=== PATIENT | male | born 2005 | race Two or more races ===

== ENCOUNTER 2025-02-26 12:30 | Emergency (ER) | payer SELFPAY ==
--- NOTE | 2025-02-26 12:48 | XR_ITS ---
Examination: Wrist, right 3 views Technique: Wrist AP, oblique, lateral 3 views Date and time of exam: February 26, 2025, 1300 hours INDICATIONS: Patient fell today with injury to the wrist, wrist pain. FINDINGS: Acute fractures distal radius distal ulna, severe volar angulation at the fracture sites Overriding of the distal ulnar fracture Carpal bones intact IMPRESSION: Acute fractures distal radius distal ulna, severe volar angulation at the fracture sites
--- NOTE | 2025-02-26 12:48 | XR_ITS ---
Examination: Humerus 2 views right Technique: Humerus, AP lateral 2 views Date and time of exam: February 26, 2025, 1313 hours INDICATION: Patient fell today with injury to the arm, arm pain FINDINGS: No shoulder fracture or dislocation Shaft of the humerus intact IMPRESSION: Negative for fracture
--- NOTE | 2025-02-26 12:48 | XR_ITS ---
Examination: Forearm, right, 2 views. Technique: Forearm, AP, lateral 2 views Date and time of exam: February 26, 2025, 1300 hours INDICATIONS: Patient fell today with injury to the forearm, arm pain. FINDINGS: Acute fractures distal radius distal ulna Mild overriding of the distal ulnar fracture On the lateral view severe palmar angulation of both fractures Elbow bones appear intact IMPRESSION: Acute significantly angulated fractures distal radius distal ulna
--- NOTE | 2025-02-26 12:49 | XR_ITS ---
Examination: CT brain head without contrast. 2-D sagittal coronal reconstructions Date and time of exam: February 26, 2025, 1435 hours INDICATIONS: Patient fell off a ladder today with injury to the head, head pain CTDI: vol (mGy): 51.5 DLP: (mGycm): 1086 Technique: Multiple CT axial sections of the brain have been obtained, 5 mm slice thickness. Contrast has not been administered. 2-D sagittal, coronal reconstructions have been obtained Low dose protocols were performed. One or more of the following dose reduction techniques were used; automated exposure control, adjustment of the mA and/or KV according to patient size, use of iterative reconstruction technique. Findings: No significant ventricular enlargement. Intra-axial or extra-axial hemorrhage density is not seen. No mass effect or midline shift Basal cisterns are not remarkable. Fourth ventricle is midline. Cranial vault intact. Impression: Negative for acute hemorrhage, mass effect or midline shift
--- NOTE | 2025-02-26 12:49 | XR_ITS ---
Examination: CT chest, without intravenous contrast. CT abdomen, without intravenous contrast. CT pelvis, without intravenous contrast. 2-D sagittal and coronal reconstructions. 3-D reconstructions. Date and time of exam: February 26, 2025, 1438 hours INDICATIONS: Patient fell from a ladder today with injury to the chest and abdomen, chest pain abdomen pain CTDI vol (mgy) 10.2 DLP (MGycm) 778 Technique: Multiple CT images, 3.0 mm slice thickness, obtained chest, abdomen, pelvis, with the high-resolution 64 slice scanner.. Sagittal and coronal 2-D reconstructions are obtained. 3-D reconstructions Low dose protocols were performed. One or more of the following dose reduction techniques were used; automated exposure control, adjustment of the mA and/or KV according to patient size, use of iterative reconstruction technique. Findings: Thoracic aorta pulmonary arteries intact No hemopericardium No pneumothorax pulmonary contusion or hemothorax The manubrium and the body of the sternum are intact No thoracic lumbar or sacral fracture noted Ribs appear intact Fatty infiltration throughout the liver No liver splenic or renal laceration, no perinephric hematoma Abdominal aorta intact, no free blood in the abdomen or pelvis Normal appendix Intact urinary bladder Bones of the pelvis hips intact IMPRESSION: Please see the right forearm report Thoracic aorta pulmonary arteries intact No pneumothorax or hemothorax No abdominal parenchymal laceration Abdominal aorta intact No free blood in the abdomen or pelvis
--- NOTE | 2025-02-26 12:49 | XR_ITS ---
Examination: CT cervical spine without contrast 2-D sagittal reconstructions 2-D coronal reconstructions 3-D reconstructions. Exam date and time: February 26, 2025, 1435 hours INDICATION: Patient fell off a ladder today with injury to the neck, neck pain CTDI:vol (mGy) 17.2 DLP: (mGycm) 349 Technique: Multiple 2 mm axial sections of the cervical spine have been obtained. The coronal and sagittal reconstructions have been obtained. 3-D reconstructions have been obtained. Low dose protocols were performed. One or more of the following dose reduction techniques were used; automated exposure control, adjustment of the mA and/or KV according to patient size, use of iterative reconstruction technique. Findings: Axial sections demonstrate intact base of the skull. C1 exhibit satisfactory relationship to the odontoid. No acute cervical vertebral body fracture seen. Alignment posterior spinous processes satisfactory. Impression: No acute cervical fracture.
[2025-02-26 12:50] VITALS: BMI 29.5
--- NOTE | 2025-02-26 12:50 | EDNOTE_ITS ---
ED Fall Injury RME/HPI General Chief Complaint: Fall Stated Complaint: Fell from ladder, 7ft and right shoulder pain Time Seen by Provider: 02/26/25 12:50 Source: patient Arrival date/time: 02/26/25 12:30 Mode of arrival: ambulatory RME / HPI RME / HPI Narrative: See MDM for HPI documentation. Related Data Previous Rx's ?Medication ?Instructions ?Recorded acetaminophen 300 mg-codeine 30 mg 2 tab PO Q8H PRN pa in #20 tabs 02/26/25 tablet ibuprofen 800 mg tablet 800 mg PO Q8H PRN pain #30 t abs 02/26/25 Allergies Allergy/AdvReac Type Severity Reaction Status Date / Time No Known Drug Allergies Allergy Verified 02/26/25 12:35 Review of Systems Review of Systems Systems Reviewed: All systems reviewed, normal except as documented ED Exam Narrative Physical exam: See MDM for physical exam documentation. Course Quality Measures none Orders Category Date Time Status Miscellaneous Nursing Order NOW Care 02/26/25 12:47 Completed Saline [Insert IV] NOW Care 02/26/25 12:45 Completed Splint / Immobilizer STAT Care 02/26/25 14:[address] cervical spine wo con Stat Exams 02/26/25 12:[address] chest abdomen pelvis wo Stat Exams 02/26/25 12:[address] head/brain wo con Stat Exams 02/26/25 12:49 Completed XR forearm RT 2V Stat Exams 02/26/25 12:48 Completed XR humerus RT min 2V Stat Exams 02/26/25 12:48 Completed XR wrist comp RT min 3V Stat Exams 02/26/25 12:48 Completed Alcohol, Blood Medical Stat Lab 02/26/25 12:55 Completed Bilirubin,Direct Stat Lab 02/26/25 12:55 Completed CBC Stat Lab 02/26/25 12:55 Completed CMP [Comprehensive Metabolic Panel] Stat Lab 02/26/25 12:55 Completed Magnesium Stat Lab 02/26/25 12:55 Completed PT [Prothrombin Time with INR] Stat Lab 02/26/25 12:55 Completed PTT [Partial Thromboplastin Time] Stat Lab 02/26/25 12:55 Completed HYDROmorphone INJ [Dilaudid Inj] Med 02/26/25 12:45 Discontinued 2 mg IVP X1 ONE HYDROmorphone INJ [Dilaudid Inj] Med 02/26/25 14:38 Discontinued 2 mg IVP X1 ONE Ketorolac Inj [Toradol Inj] Med 02/26/25 12:45 Discontinued 30 mg IVP X1 ONE Ondansetron Inj [Zofran Inj] Med 02/26/25 12:45 Discontinued 4 mg IVP X1 ONE Ringers Lactated 1000 ml [Lactated Ringers] 1,000 ml Med 02/26/25 12:47 Discontinued IV 1,000 mls/hr Vital Signs Vital signs: Vital Signs Temperature 97.6 F 02/26/25 12:55 Pulse Rate 76 02/26/25 12:55 Respiratory Rate 20 02/26/25 12:55 Blood Pressure 136/94 H 02/26/25 12:55 Pulse Oximetry (%) 98 02/26/25 12:55 Oxygen Delivery Method Room Air 02/26/25 12:55 Fall MDM Narrative MDM Narrative:: This section includes all my notes and documentations, including HPI, PE, and ED course. Roque Mcqueen MD HPI: 19-year-old male here after falling off a ladder (6-7 feet above ground) while picking oranges just [employer]. Landed on his right side. Uncertain of head injury or loss of consciousness. Reports severe right arm pain, difficult to localize. Can move and feel the fingers normally. No headache or dizziness. No neck pain or back pain. No chest pain or abdominal pain. No other limb pain. No other complaints. ROS: All negative except as documented in HPI. Physical Exam: General: Alert and oriented. In severe pain. Eyes: Conjunctivae and lids clear. EOMI. PERRL. ENT: No signs of head trauma. Neck: Supple. No tenderness. Heart: RRR. Lungs: No respiratory distress. Good air movement. No rhonchi, wheezing, rales. Chest: No tenderness. Abdomen: Soft and nontender. Normal bowel sounds. No distension. No rebound or guarding. Back: No tenderness. Skin: Warm and dry. Neuro: Alert and oriented X 3. Cranial Nerves II-XII grossly intact. No peripheral motor deficits. Musculoskeletal: Remarkable for severe right shoulder/arm tenderness, difficult to localize. No NVT injury. All other major joints and bones are not tender with no limited ROM. I reviewed all diagnostic test results: My interpretation of the right humerus/forearm/wrist x-rays is distal radius and ulna fractures. My review of the head CT report is NAD. My review of the cervical spine CT report is no fracture. My review of the chest/abdominal CT report is no acute findings. Blood tests unremarkable. At this point, diagnoses include: Right radius and ulna fractures. Treatment here included: IVF Zofran 4 mg IV Toradol 30 mg IV Dilaudid 2 mg IV X 2 Splint and arm sling Significant improvement noted. Recommended more outpatient care. Based on my best medical judgment, made decision no further evaluation or treatment indicated at this time. Patient understands and agrees to the discharge instructions customized and printed, see below. Instrucciones de jonna del Dr. cMqueen (impresas para usted): 1. Lamentablemente, se fractur? el antebrazo derecho. 2. Mantenga la f?reza limpia, seca e intacta y use el cabestrillo hasta que lo cydney el m?dico que lo atiende. 3. [place] ibuprofeno de 800 mg cada 6-8 horas hoy y ma?mateus para disminuir la inflamaci?n, y luego seg?n sea necesario. [place] Tylenol con code?na para el dolor intenso. 4. Mantenga el brazo elevado por encima del nivel del coraz?n lionel 3 d?as, tanto kiarra sea posible. 5. Consulte con un m?dico particular fuera de la corey de emergencias el 28/02/2025 para delbert revisi?n. Solicite revisar todos los resultados de las pruebas y los informes radiol?gicos oficiales para asegurarse de recibir todo el seguimiento y la monitorizaci?n necesarios. Solicite delbert derivaci?n a un cirujano ortop?dico para delbert evaluaci?n adicional, incluyendo delbert posible cirug?a. Lamentablemente, nuestra corey de emergencias no cuenta con un cirujano ortop?dico lionel aproximadamente un mes. 6. Es posible que experimente entumecimiento y hormigueo en la mano derecha debido a que la hinchaz?n/inflamaci?n comprimir? los nervios que van a la mano. Sin embargo, busque atenci?n m?dica de inmediato si el dolor es insoportable, si no puede [employer] los dedos, si los dedos se ponen fr?os y azules, o si tiene alguna otra inquietud. Discharge Instructions from Dr. Mcqueen printed for you: 1. Unfortunately, you broke your right forearm. 2. Keep the splint clean and dry and intact and wear the arm sling until seen by a doctor taking care of you. 3. Ibuprofen 800 mg every 6-8 hours today and tomorrow to decrease inflammation then as needed. Tylenol with codeine for severe pain. 4. Elevate above the heart level for 3 days as much as possible. 5. See a private doctor outside the ER on 02/28/2025 for recheck. Ask to review all test results and official radiology reports, to make sure you receive all necessary follow-ups and monitoring. Ask for a referral to see orthopedic surgeon for further evaluation, including possible surgery. Unfortunately, our ER has no orthopedic surgeon for about a month. 6. You are going to have numbness and tingling in the right hand because the swelling/inflammation will pinch the nerves going into the hand. But seek immediate medical care with intolerable pain, if you can't move the fingers, your fingers turn cold and blue, or with any concerns. Roque Mcqueen MD Patient data External records reviewed:: None Clinical information provided by:: patient Social determinants that could affect healthcare access:: none Patient has the following chronic illnesses:: None How is presenting disease/condition affected by chronic disease/condition?: no chronic disease Evaluation data The following diagnostics were reviewed and interpreted by me:: lab results and radiology exam(s) Lab and/or radiology exams considered but not ordered:: None Interpretation Summary: I reviewed all diagnostic test results: My interpretation of the right humerus/forearm/wrist x-rays is distal radius and ulna fractures. My review of the head CT report is NAD. My review of the cervical spine CT report is no fracture. My review of the chest/abdominal CT report is no acute findings. Blood tests unremarkable. Medications / Prescriptions Medications or Prescriptions considered but not ordered:: None Medication administrations:: Medication Administration History Discontinued Medications Hydromorphone HCl (Hydromorphone Inj 2 Mg/Ml Vial) 2 mg IVP X1 ONE Stop: 02/26/25 12:46 Last Admin: 02/26/25 12:57 Dose: 2 mg Documented By: DO Hydromorphone HCl (Hydromorphone Inj 2 Mg/Ml Vial) 2 mg IVP X1 ONE Stop: 02/26/25 14:39 Last Admin: 02/26/25 15:12 Dose: 2 mg Documented By: DO Lactated Ringer's (Lactated Ringers) 1,000 mls @ 1,000 mls/hr IV .Q1H ONE Stop: 02/26/25 13:46 Last Infusion: 02/26/25 15:16 Dose: Infused Documented By: Admin: 02/26/25 12:58 Dose: 1,000 mls/hr Documented By: DO Ketorolac Tromethamine (Ketorolac Inj 30 Mg/Ml Vial) 30 mg IVP X1 ONE Stop: 02/26/25 12:46 Last Admin: 02/26/25 12:58 Dose: 30 mg Documented By: DO Ondansetron HCl (Ondansetron Inj 2 Mg/Ml Inj 2 Ml) 4 mg IVP X1 ONE; Protocol Stop: 02/26/25 12:46 Last Admin: 02/26/25 12:56 Dose: 4 mg Documented By: DO Treatment here included: IVF Zofran 4 mg IV Toradol 30 mg IV Dilaudid 2 mg IV X 2 Splint and arm sling Consultations Consultation(s) initiated? (list below): No Diagnosis Fall Differential Diagnosis: dislocation of shoulder region, fracture of wrist, compression fracture, concussion with loss of consciousness and concussion without loss of consciousness Most likely diagnosis given after review of the tests above:: Right radius and ulna fractures. Admission Indicated Admission indicated?: not indicated Explain why admission is indicated or not indicated:: With significant improvement and no condition needing emergent intervention, there was no indication for admission. Admission Request Was there a request for admission?: No Disposition Plan Disposition Plan: Discharge Discharge Attestation Discharge Attestation: The patient and all family members were given an opportunity to ask questions and understood the discharge instructions. Discharge instructions specifically effects, indications for sooner follow up or return to the emergency department, and the expected course of current diagnosis. Patient condition: Stable Discharge Plan Plan Patient Disposition: HOME (Self Care) Prescriptions/Referrals Prescriptions/Med Rec: New ibuprofen 800 mg tablet 800 mg PO Q8H PRN (Reason: pain) Qty: 30 0RF acetaminophen-codeine 300-30 mg tablet 2 tab PO Q8H MDD 6 PRN (Reason: pain) Qty: 20 0RF Problem List Clinical Impression: Fracture of right forearm Patient/Caregiver Discharge Instructions Discharge Activity: activity as tolerated Education Materials: ED Forearm Fx Wo Redu Additional Instructions: Instrucciones de jonna del Dr. Mcqueen (impresas para usted): 1. Lamentablemente, se fractur? el antebrazo derecho. 2. Mantenga la f?reza limpia, seca e intacta y use el cabestrillo hasta que lo cydney el m?dico que lo atiende. 3. [place] ibuprofeno de 800 mg cada 6-8 horas hoy y ma?mateus para disminuir la inflamaci?n, y luego seg?n sea necesario. [place] Tylenol con code?na para el dolor intenso. 4. Mantenga el brazo elevado por encima del nivel del coraz?n lionel 3 d?as, tanto kiarra sea posible. 5. Consulte con un m?dico particular fuera de la corey de emergencias el 28/02/2025 para delbert revisi?n. Solicite revisar todos los resultados de las pruebas y los informes radiol?gicos oficiales para asegurarse de recibir todo el seguimiento y la monitorizaci?n necesarios. Solicite delbert derivaci?n a un cirujano ortop?dico para delbert evaluaci?n adicional, incluyendo delbert posible cirug?a. Lamentablemente, nuestra corey de emergencias no cuenta con un cirujano ortop?dico lionel aproximadamente un mes. 6. Es posible que experimente entumecimiento y hormigueo en la mano derecha debido a que la hinchaz?n/inflamaci?n comprimir? los nervios que van a la mano. Sin embargo, busque atenci?n m?dica de inmediato si el dolor es insoportable, si no puede [employer] los dedos, si los dedos se ponen fr?os y azules, o si tiene alguna otra inquietud. Discharge Instructions from Dr. Mcqueen printed for you: 1. Unfortunately, you broke your right forearm. 2. Keep the splint clean and dry and intact and wear the arm sling until seen by a doctor taking care of you. 3. Ibuprofen 800 mg every 6-8 hours today and tomorrow to decrease inflammation then as needed. Tylenol with codeine for severe pain. 4. Elevate above the heart level for 3 days as much as possible. 5. See a private doctor outside the ER on 02/28/2025 for recheck. Ask to review all test results and official radiology reports, to make sure you receive all necessary follow-ups and monitoring. Ask for a referral to see orthopedic surgeon for further evaluation, including possible surgery. Unfortunately, our ER has no orthopedic surgeon for about a month. 6. You are going to have numbness and tingling in the right hand because the swelling/inflammation will pinch the nerves going into the hand. But seek immediate medical care with intolerable pain, if you can't move the fingers, your fingers turn cold and blue, or with any concerns. Print Language: Honduran Stand Alone Forms: Ann [facility] Award Info., Patient Portal Info Letter
[2025-02-26 12:55] VITALS: BP 136/94; PULSE 76; RESP 20; TEMP 36.4; O2SAT 98
[2025-02-26] MEDS: ONDANSETRON INJ 2 MG/ML INJ 2 ML 4 MG IVP (12:56)
[2025-02-26] MEDS: HYDROmorphone INJ 2 MG/ML VIAL IVP ×2 (12:57→15:12)
[2025-02-26] MEDS: RINGERS LACTATED 1000 ML 1,000 ML IV (12:58)
[2025-02-26] MEDS: KETOROLAC INJ 30 MG/ML VIAL IVP (12:58)
[2025-02-26 13:18] LABS: Basophils # (Auto) 0.1 Thou/mm3 (0.0-0.2); Basophils % (Auto) 0 % (0-2.5); Eosinophils # (Auto) 0.2 Thou/mm3 (0.0-0.5); Eosinophils % (Auto) 1 % (0-10); Hematocrit 43.3 % (41.0-53.0); Hemoglobin 14.5 g/dL (13.5-16.0); Immature Granulocytes Auto 0.04 Thou/mm3 (0.00-0.00); Lymphocytes # (Auto) 3.6 Thou/mm3 (1.0-4.8); Lymphocytes % (Auto) 24 % (10-50); Mean Corpuscular HGB Conc 33.5 g/dl (31.0-37.0); Mean Corpuscular Hemoglobin 27.2 pg (25.0-35.0); Mean Corpuscular Volume 81 fL (80-100); Monocytes # (Auto) 0.7 Thou/mm3 (0.0-0.8); Monocytes % (Auto) 5 % (0-12); Neutrophils # (Auto) 10.2 Thou/mm3 (1.8-7.7); Neutrophils % (Auto) 69 % (37-80); Nucleated Red Blood Cell # 0.00 Thou/mm3 (0.00-0.00); Nucleated Red Blood Cell % 0 /100 WBC (0); Platelet Count 474 Thou/mm3 (140-440); RDW Standard Deviation 40.2 fL (35.1-43.9); Red Blood Count 5.34 Miln/mm3 (4.50-5.90); White Blood Count 14.7 Thou/mm3 (3.8-10.6)
[2025-02-26 13:37] LABS: INR 1.1 (0.9-1.3); Partial Thromboplastin Time 24.7 Seconds (22.0-36.0); Prothrombin Time 11.5 Seconds (9.0-12.2)
[2025-02-26 13:48] LABS: Alanine Aminotransferase 141 U/L (10-49); Albumin, Serum 5.1 gm/dL (3.5-5.0); Albumin/Globulin Ratio 1.6 (1.2-2.2); Alcohol, Blood Medical < 3.0 mg/dL (0-10.0); Alkaline Phosphatase 130 U/L (46-116); Anion Gap 13 (7-16); Aspartate Amino Transferase 66 U/L (0-34); BUN/Creatinine Ratio 18 Ratio (12-20); Bilirubin,Direct 0.3 mg/dL (0.0-0.3); Bilirubin,Total 1.0 mg/dL (0.3-1.2); Blood Urea Nitrogen 16 mg/dL (9-23); Calcium 9.4 mg/dL (8.3-10.6); Calcium (Corrected) 9.4 mg/dL (8.5-10.1); Carbon Dioxide 23.5 mMol/L (20.0-31.0); Chloride 106 mMol/L (98-107); Creatinine (Component) 0.9 mg/dL (0.6-1.3); Estimated Creatinine Clearance 131.3 mL/min (>60); Globulin 3.2 gm/dL (2.3-3.5); Glucose 130 mg/dL (74-106); Magnesium 2.0 mg/dL (1.6-2.6); Osmolality,Calculated 286 (275-295); Potassium 3.6 mMol/L (3.4-5.1); Sodium 142 mMol/L (136-145); Total Protein 8.3 gm/dL (5.7-8.2); eGFR > 60 See Note
== END 2025-02-26 16:44 | disposition home or self-care (01) ==
LOC: SERX 16:37
PROVIDERS: Emergency Provider Emergency Medicine
DX: S52.501A Unspecified fracture of the lower end of right radius, initial encounter for closed fracture (principal); S52.609A Unspecified fracture of lower end of unspecified ulna, initial encounter for closed fracture; S09.90XA Unspecified injury of head, initial encounter; S19.9XXA Unspecified injury of neck, initial encounter; S29.9XXA Unspecified injury of thorax, initial encounter; S39.91XA Unspecified injury of abdomen, initial encounter; S49.91XA Unspecified injury of right shoulder and upper arm, initial encounter; W11.XXXA Fall on and from ladder, initial encounter
CPT/HCPCS: 29125; 36415; 70450; 71250; 72125; 73060; 73090; 73110; 74176; 80053; 80307; 80320; 82248; 83735; 85025; 85610; 85730; 96374; 96375; 96376; 99284; A4565; J1171; J1885; J2405; J7120; G0480

== ENCOUNTER 2025-03-09 17:37 | Emergency (ER) | payer SELFPAY ==
[2025-03-09 17:38] VITALS: BMI 28.2
[2025-03-09 18:46] VITALS: BP 143/77; PULSE 76; RESP 18; TEMP 36.7; O2SAT 98; BMI 29.2
--- NOTE | 2025-03-09 19:15 | XR_ITS ---
Examination: Forearm, right, 2 views. Technique: Forearm, AP, lateral 2 views Date and time of exam: March 09, 2025, 1918 hours INDICATIONS: Injury deformity, forearm pain FINDINGS: Acute fractures distal shafts radius and ulna, prominent volar angulation at the fracture sites 1 shaft width offset of the distal ulnar shaft fracture Carpal bones intact IMPRESSION: Acute fractures distal shafts radius and ulna
--- NOTE | 2025-03-09 19:15 | PD.EDRME ---
Rapid Medical Screening Exam RME Arrival date/time: 03/09/25 17:37 19M with no significant PMH presents to ED wanting R wrist splint to be redone due to continued pain. Patient was here about 1 week ago where patient was found to have displaced fx. Per patient, reduction was not done. Chief Complaint: Wound Recheck / Suture Removal Vital signs: Vital Signs Temperature 98.0 F 03/09/25 18:46 Pulse Rate 76 03/09/25 18:46 Respiratory Rate 18 03/09/25 18:46 Blood Pressure 143/77 H 03/09/25 18:46 Pulse Oximetry (%) 98 03/09/25 18:46 Oxygen Delivery Method Room Air 03/09/25 18:46 Exam: R forearm deformity Clinical Impression: Splint change vs forearm fx vs need for reduction
[2025-03-09 19:48] VITALS: BP 137/78; PULSE 91; RESP 19; TEMP 37.1; O2SAT 97
--- NOTE | 2025-03-09 19:52 | EDNOTE_ITS ---
ED Wound/Laceration-RME/HPI General Chief Complaint: Wound Recheck / Suture Removal Stated Complaint: WANTS SPLINT REVISION Time Seen by Provider: 03/09/25 19:16 Arrival date/time: 03/09/25 17:37 RME / HPI RME / HPI narrative: 03/09/25 17:37 19M with no significant PMH presents to ED wanting R wrist splint to be redone due to continued pain. Patient was here about 1 week ago where patient was found to have displaced fx. Per patient, reduction was not done. Dr. Galeano?s Main ED Evaluation: 19yo male presents to the ED due to having problems with his right arm splint. Patient was seen here 11 days ago, was diagnosed with a right forearm fracture, and was discharged home. Tonight, patient was having worsening right forearm pain and was unable to move his fingers in the splint, so he came in for evaluation. Patient is right-hand dominant. Denies any other associated symptoms. NKA. Patient has been unable to obtain orthopedic referral through his PCP. Related Data Previous Rx's ?Medication ?Instructions ?Recorded acetaminophen 300 mg-codeine 30 mg 2 tab PO Q8H PRN pa in #20 tabs 02/26/25 tablet ibuprofen 800 mg tablet 800 mg PO Q8H PRN pain #30 t abs 02/26/25 hydrocodone 10 mg-acetaminophen 1 tab PO Q6H PRN pain #30 tabs 03/09/25 325 mg tablet Allergies Allergy/AdvReac Type Severity Reaction Status Date / Time No Known Drug Allergies Allergy Verified 03/09/25 17:40 Review of Systems Review of Systems Systems Reviewed: All systems reviewed, normal except as documented Past Medical History Past Medical History CARDIAC: Negative Congestive Heart Failure RESPIRATORY: Negative Chronic Obstructive Pulmonary Disease (COPD) GENITOURINARY: Negative Renal Disease ENDOCRINE: Negative Diabetes Mellitus Type 1 or Diabetes Mellitus Type 2 Social History SMOKING STATUS: Never smoker ED Exam Narrative Physical exam: Generally patient is alert oriented in mild distress secondary right forearm pain, heart regular rate and rhythm, lungs clear to auscultation equal bilaterally, abdomen soft nondistended nontender, extremities show tenderness to the mid right forearm. Splint has already been removed. Strong distal radial and ulnar pulse to that right upper extremity and sensation to the entire right upper extremity is intact. No open wounds to the right upper extremity. Sensation to the right upper extremity is intact Course Quality Measures none Orders Category Date Time Status XR forearm RT 2V Stat Exams 03/09/25 19:15 Taken HYDROmorphone INJ [Dilaudid Inj] Med 03/09/25 20:19 Discontinued 2 mg IVP X1 ONE Vital Signs Vital signs: Vital Signs Temperature 98.0 F 03/09/25 18:46 Pulse Rate 76 03/09/25 18:46 Respiratory Rate 18 03/09/25 18:46 Blood Pressure 143/77 H 03/09/25 18:46 Pulse Oximetry (%) 98 03/09/25 18:46 Oxygen Delivery Method Room Air 03/09/25 18:46 Wound / Laceration MDM Narrative MDM Narrative:: Scribe Attestation: 03/09/25 - Cielo Hanks am scribing for and in the presence of Dr. Galeano. X-ray of the right forearm was read taken here in the emergency room tonight and the patient has an angulated mid radius and ulna fracture on the right. This is a closed fracture. I sent pictures of the x-ray to orthopedic surgeon, Dr. Rivera who agrees that there is no reason for reduction because these are midshaft fractures and once perched it would simply fall back off the perch. Patient received Dilaudid 2 mg IV for pain. Sugar-tong splint was reapplied. Post splint application neurovascular check was normal. 11 days ago and the patient originally fractured his arm he was not sent home on narcotic pain medication. He will be discharged on 10 mg Elkins to be taken as prescribed in addition to the 800 mg of ibuprofen. Patient is to follow-up at the [facility] outpatient orthopedic clinic. He can call to make an appointment at [phone] in the clinic is located at [address] [place] [address] in [place]. This was relayed to the patient and his cousin at bedside. He is to keep the splint on clean and dry. It was stressed to the patient so he understands the importance of orthopedic follow-up because he will need surgery on the midshaft right radial and ulna angulated fractures. Again, the original date of injury was 11 days prior to my evaluation on February 26, 2025. Patient data External records reviewed:: [facility] previous records (Per chart review, patient was seen here on 02/26/25 for fracture of the right forearm.) Clinical information provided by:: patient Social determinants that could affect healthcare access:: none Patient has the following chronic illnesses:: none How is presenting disease/condition affected by chronic disease/condition?: no chronic disease Evaluation data The following diagnostics were reviewed and interpreted by me:: radiology exam(s) Lab and/or radiology exams considered but not ordered:: none Interpretation Summary: See MDM Medications / Prescriptions Medications or Prescriptions considered but not ordered:: none Medication administrations:: Medication Administration History Discontinued Medications Hydromorphone HCl (Hydromorphone Inj 2 Mg/Ml Vial) 2 mg IVP X1 ONE Stop: 03/09/25 20:20 Last Admin: 03/09/25 20:41 Dose: 2 mg Documented By: REGI see above Consultations Consultation(s) initiated? (list below): No Diagnosis Wound Differential Diagnosis: other (See MDM) Most likely diagnosis given after review of the tests above:: see clinical impression below Admission Indicated Admission indicated?: not indicated Admission Request Was there a request for admission?: No Disposition Plan Disposition Plan: Discharge Discharge Attestation Discharge Attestation: The patient and all family members were given an opportunity to ask questions and understood the discharge instructions. Discharge instructions specifically effects, indications for sooner follow up or return to the emergency department, and the expected course of current diagnosis. Patient condition: Stable Discharge Plan Plan Patient Disposition: HOME (Self Care) Prescriptions/Referrals Prescriptions/Med Rec: New hydrocodone-acetaminophen 10-325 mg tablet 1 tab PO Q6H MDD 4 PRN (Reason: pain) Qty: 30 0RF No Action ibuprofen 800 mg tablet 800 mg PO Q8H PRN (Reason: pain) Qty: 30 0RF acetaminophen-codeine 300-30 mg tablet 2 tab PO Q8H MDD 6 PRN (Reason: pain) Qty: 20 0RF Referrals: No Primary/Family,Physician [Primary Care Provider] - In 1 week Problem List Clinical Impression: Fracture of radius and ulna Patient/Caregiver Discharge Instructions Additional Instructions: Keep the splint on clean and dry. Elkins as prescribed for pain. You may also use the ibuprofen for pain. Call [facility] outpatient orthopedic clinic 3 days at phone number [phone] to schedule an appointment. You will need surgery for your right arm fracture. The clinic is located at [address] [place] [address] in [place]. Print Language: Palauan Stand Alone Forms: Ann Marie Award Info., Patient Portal Info Letter
[2025-03-09] MEDS: HYDROmorphone INJ 2 MG/ML VIAL IVP (20:41)
[2025-03-09 21:50] VITALS: BP 130/76; PULSE 94; RESP 18; TEMP 37.1; O2SAT 97
== END 2025-03-09 21:52 | disposition home or self-care (01) ==
PROVIDERS: Emergency Provider Emergency Medicine
DX: S52.91XD Unspecified fracture of right forearm, subsequent encounter for closed fracture with routine healing (principal); S52.201D Unspecified fracture of shaft of right ulna, subsequent encounter for closed fracture with routine healing; X58.XXXD Exposure to other specified factors, subsequent encounter
CPT/HCPCS: 29125; 73090; 96374; 99283; J1171